=== PATIENT | male | born 1950 | race Caucasian/White ===

== ENCOUNTER → 2016-10-21 | Outpatient (CLI) | payer MEDICARE, OTHER ==
[2015-11-04 12:55] VITALS: BP 130/79
[~2016-10-21] MED LIST: ACET500T33 PO; ASPI325T4 PO; ESOM20CA PO; FLUO40CR TP; LOVA20TA2 PO; METO25TA2 PO; MULT-208 PO; OXYC5CAP3 PO; SEA-OMEGA 50 C1 EACH PO; TRAM-29 PO; VENTOLIN HFA18 GM INH
--- NOTE | 2016-10-21 10:30 | KCIC ---
CT CHEST Indication: Pulmonary nodule Comparison: None available Technique: Multiple contiguous axial images were obtained through the chest. Coronal and sagittal reformations were created. Findings: Evaluation of the mediastinum and alexandro is limited in the absence of IV contrast but no gross adenopathy is appreciated. Heart size is normal. Coronary artery calcifications are noted. There is ectasia of the aortic root measuring approximately 4.4 cm. There is no pneumothorax, pleural effusion, or infiltrate. No suspicious pulmonary nodules are identified. Limited subdiaphragmatic evaluation demonstrates low-attenuation lesions in the left and right lobes of the liver which could represent cysts but are incompletely evaluated. Surgical clips are noted in the right upper quadrant. Gallbladder is not identified. IMPRESSION: No suspicious pulmonary nodule is identified. Coronary artery disease. Ectasia of the aortic root measuring 4.4 cm. Electronically signed by: Raymond Ham MD (10/21/2016 10:26 AM)
== END | disposition home or self-care (01) ==
LOC: KCIC CT 09:37
PROVIDERS: ATTEND Internal Medicine Pulmonary Disease
DX: R91.1 Solitary pulmonary nodule (principal); I25.10 Atherosclerotic heart disease of native coronary artery without angina pectoris
CPT/HCPCS: 71250

== ENCOUNTER → 2016-11-11 | Outpatient (CLI) | payer MEDICARE ==
[2015-11-04 12:55] VITALS: BP 130/79
[~2016-11-11] MED LIST changes: -ASPI325T4 PO; +ASPI325T8 PO; +CALC625T20 PO; +CETI10TA22 PO; +FLUT9.9S NS; +OXYC5CAP PO; -OXYC5CAP3 PO; -TRAM-29 PO; +TRAM-48 PO
[2016-11-11 13:48] LABS: BASO % 1 % (0-3); EOS % 6 % (0-3); HEMATOCRIT 42.8 % (39.0-53.0); LYMPH # 1.6 x10^3/uL (1.0-4.8); LYMPH % 33 % (24-48); MEAN CORPUSCULAR HEMOGLOBIN 31 pg (25-35); MEAN CORPUSCULAR HGB CONC 35 g/dL (31-37); MEAN CORPUSCULAR VOLUME 88 fL (79-100); MONO % 9 % (0-9); NEUT % 52 % (31-73); PLATELET COUNT 191 x10^3/uL (140-400); RED BLOOD COUNT 4.85 x10^6/uL (4.30-5.70); RED CELL DISTRIBUTION WIDTH 13.5 % (11.5-14.5)
[2016-11-11 14:02] LABS: ALBUMIN 3.8 g/dL (3.4-5.0); CREATININE 1.1 mg/dL (0.7-1.3); GFR 67.2
[2016-11-11 14:04] LABS: INR 0.9 (0.8-1.1); PROTHROMBIN TIME PATIENT 11.7 SEC (11.7-14.0)
--- NOTE | 2016-11-11 14:07 | EKG ---
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
== END | disposition home or self-care (01) ==
LOC: SURGPAT 12:41
PROVIDERS: ATTEND Orthopaedic Surgery
DX: M16.11 Unilateral primary osteoarthritis, right hip (principal)
CPT/HCPCS: 36415; 80048; 82040; 83036; 85027; 85610; 85651; 85730; 87641; 93005

== ENCOUNTER 2016-11-24 08:59 | Inpatient (IN) | payer MEDICARE ==
[2016-11-23] MEDS: IV RINGERS,LACTATED 1000ML 1,000 ML IV SCH (19:39)
[~2016-11-24] VITALS: Ht 185.4 cm; Wt 101.2 kg
[2016-11-24] VITALS (7 sets, daily range): BP systolic 99–116; BP diastolic 58–64
[~2016-11-24 08:59] MED LIST changes: +ACETAMINOPHEN 500 MG TABLET PO PRN; +BACITRACIN 50,000 UNIT in IV NORMAL SALINE 1000ML BAG 1,000 ML IRR ONE; +CELECOXIB 200 MG CAPSULE. PO PRN; +HYDROmorphone 2 MG/ML VIAL IV PRN; +LIDOCAINE 1% 1 ML SYRINGE. ID PRN; +MEPERIDINE PF 25 MG/ML VIAL. IV PRN; +MIDAZOLAM HCL/PF 2 MG/2 ML VIAL. IV PRN; +MORPHINE SULFATE 4 MG/ML DISP.SYRIN. IV PRN; +PROCHLORPERAZINE 10 MG/2 ML VIAL. IV PRN; +diphenhydrAMINE 50 MG/ML VIAL IV PRN; +fentaNYL PF VIAL 100 MCG/2 ML VIAL IV PRN
[2016-11-24] MEDS ORDERED: ONDANSETRON PF 4 MG/2 ML VIAL. ONE (09:34)
[2016-11-24] MEDS ORDERED: FAMOTIDINE 20 MG/2 ML VIAL ONE (09:34)
[2016-11-24] MEDS ORDERED: DEXAMETHASONE SOD PHOS 20 MG/5 ML VIAL. ONE (09:34)
[2016-11-24] MEDS ORDERED: LIDOCAINE 2% PF Vial for OR 5 ML VIAL. ONE (09:34)
[2016-11-24] MEDS ORDERED: MIDAZOLAM HCL/PF 2 MG/2 ML VIAL. ONE (09:34)
[2016-11-24] MEDS ORDERED: PROPOFOL 20 ML IV ONE (09:34)
[2016-11-24] MEDS ORDERED: fentaNYL PF VIAL 100 MCG/2 ML VIAL ONE ×3 (09:35→13:25)
[2016-11-24] MEDS ORDERED: ROCURONIUM 50 MG/5 ML VIAL. ONE (09:35)
[2016-11-24] MEDS: IV RINGERS,LACTATED 1000ML 1,000 ML IV SCH (10:06)
[2016-11-24 10:39] LABS: PROTHROMBIN TIME PATIENT 12.5 SEC (11.7-14.0)
[2016-11-24] MEDS ORDERED: ePHEDrine PF IN SALINE 50 MG/5 ML DISP.SYRIN IV ONE (11:04)
[2016-11-24] MEDS ORDERED: SEVOFLURANE > 120 MINUTES. IH ONE (11:04)
[2016-11-24] MEDS ORDERED: GLYCOPYRROLATE 1 MG/5 ML VIAL. ONE (13:25)
[2016-11-24] MEDS ORDERED: NEOSTIGMINE METHYLSULFATE 5 MG/5 ML SYRINGE. ONE (13:25)
--- NOTE | 2016-11-24 14:01 | PDOC ---
BRIEF OPERATIVE NOTE Date: Nov 24, 2016 Pre-Op Diagnosis djd right hip Post-Op Diagnosis right total hip arthroplasty Procedure Performed right total hip arthroplasty Surgeon Elgin Tam Anesthesia Type: General Blood Loss 300cc Specimens Obtained femoral head to pathology Findings above Complications none FLAQUITO MONTOYA MD Nov 24, 2016 14:01
[2016-11-24] MEDS ORDERED: ZOLPIDEM 5 MG TABLET. PO PRN (14:15)
[2016-11-24] MEDS ORDERED: MORPHINE SULFATE 2 MG/ML DISP.SYRIN. IV PRN (14:15)
[2016-11-24] MEDS ORDERED: DEXTROSE 50% 25 GM / 50ML DISP.SYRIN. IV PRN (14:15)
[2016-11-24] MEDS ORDERED: MORPHINE SULFATE 4 MG/ML DISP.SYRIN. IV PRN (14:15)
[2016-11-24] MEDS ORDERED: fentaNYL PF VIAL 100 MCG/2 ML VIAL IV PRN ×2 (14:15)
[2016-11-24] MEDS ORDERED: diphenhydrAMINE 50 MG/ML VIAL IV PRN (14:15)
[2016-11-24] MEDS ORDERED: 0.9 % SODIUM CHLORIDE 10 ML DISP.SYRIN. IV PRN (14:15)
[2016-11-24] MEDS ORDERED: ACETAMINOPHEN 325 MG TABLET. PO PRN (14:15)
[2016-11-24] MEDS ORDERED: CALCIUM CARBONATE 500 MG TAB.CHEW PO PRN (14:15)
[2016-11-24] MEDS ORDERED: HYDROcodone/APAP 10/325 1 TAB TABLET PO PRN (14:15)
[2016-11-24] MEDS ORDERED: PROCHLORPERAZINE 10 MG/2 ML VIAL. IV PRN (14:15)
[2016-11-24] MEDS ORDERED: traMADol 50 MG TABLET PO PRN (14:15)
[2016-11-24] MEDS: fentaNYL PF VIAL 100 MCG/2 ML VIAL IV PRN ×2 (14:41→15:15)
--- NOTE | 2016-11-24 14:53 | RAD ---
Indication: Postop right hip. Time of exam 1447 hours. Postop changes right hip arthroplasty are noted. The longstem femoral component is well centered in the medullary canal. Femoral acetabular alignment is normal. Acetabular screw does appear to extend beyond the iliopectineal line. No fractures are seen. Impression: Postop changes to the right hip, as described.
[2016-11-24] MEDS ORDERED: METOPROLOL SUCC 24HR ER 25 MG TAB.ER.24H. PO SCH (16:00)
[2016-11-24] MEDS ORDERED: WARFARIN 10 MG TABLET. PO ONE (16:00)
[2016-11-24] MEDS: CETIRIZINE HCL 10 MG TABLET. PO SCH (16:00)
[2016-11-24] MEDS ORDERED: MULTIVITAMIN with MINERAL TABLET. PO SCH (16:00)
[2016-11-24] MEDS: MULTIVITAMIN with MINERAL TABLET. PO SCH (16:00)
[2016-11-24] MEDS ORDERED: NON FORMULARY ITEM (Albuterol Sulfate (Ventolin Hfa Inhaler) 2 PUFF) INH SCH (17:00)
[2016-11-24] MEDS: IV DEXTROSE 5 %-0.45 % NACL 1,000 ML IV SCH (19:47)
[2016-11-24] MEDS: ALBUTEROL SULFATE 2.5 MG/3 ML NEBU. NEB SCH (20:06)
[2016-11-24] MEDS: ATORVASTATIN CALCIUM 10 MG TABLET. PO SCH (21:25)
[2016-11-24] MEDS: CELECOXIB 200 MG CAPSULE. PO SCH (21:25)
[2016-11-25 03:41] VITALS: BP 99/59
[2016-11-25 04:59] LABS: HEMATOCRIT 34.4 % (39.0-53.0); HEMOGLOBIN 11.7 g/dL (13.0-17.5); RED BLOOD COUNT 3.83 x10^6/uL (4.30-5.70); RED CELL DISTRIBUTION WIDTH 13.7 % (11.5-14.5)
[2016-11-25 05:08] LABS: INR 1.2 (0.8-1.1); PROTHROMBIN TIME PATIENT 14.6 SEC (11.7-14.0)
[2016-11-25] MEDS ORDERED: MAGNESIUM HYDROXIDE 2,400 MG/30 ML ORAL.SUSP. PO PRN (06:00)
[2016-11-25 07:08] VITALS: BP 102/60
[2016-11-25] MEDS: ALBUTEROL SULFATE 2.5 MG/3 ML NEBU. NEB SCH ×4 (07:11→20:24)
[2016-11-25] MEDS: SENNOSIDES/DOCUSATE 8.6/50MG TABLET. PO SCH (08:30)
[2016-11-25] MEDS: MULTIVITAMIN with MINERAL TABLET. PO SCH (08:30)
[2016-11-25] MEDS: PANTOPRAZOLE 40 MG TABLET.DR. PO SCH (08:30)
[2016-11-25] MEDS: ASPIRIN 325 MG TABLET PO SCH (08:31)
[2016-11-25] MEDS: FERROUS SULFATE 325 MG TABLET. PO SCH ×2 (08:31→16:17)
[2016-11-25] MEDS: CELECOXIB 200 MG CAPSULE. PO SCH ×2 (08:31→21:18)
[2016-11-25] MEDS: FLUTICASONE 50MCG/NASAL SPRAY 16GM BOTTLE. NS SCH (08:32)
[2016-11-25] MEDS: CETIRIZINE HCL 10 MG TABLET. PO SCH (08:33)
[2016-11-25] MEDS: traMADol 50 MG TABLET PO PRN ×3 (08:49→16:18)
[2016-11-25] MEDS: IV DEXTROSE 5 %-0.45 % NACL 1,000 ML IV SCH (10:01)
--- NOTE | 2016-11-25 13:27 | PDOC ---
PROGRESS NOTES Subjective Subjective Problems overnight: Overall doing terrific with therapy and mobilization minimal pain using tramadol primarily Objective Vital Signs Vital Signs Date Time Temp Pulse Resp B/P (MAP) Pulse Ox O2 Delivery O2 Flow Rate FiO2 11/25/16 12:10 16 Room Air 11/25/16 10:00 94 11/25/16 08:49 2.0 11/25/16 07:08 97.0 71 102/60 (74) 97.0 Physical Exam Leg lengths equal distal neurovascular status intact incision drain and pain catheter intact excellent motion and stability Labs Laboratory Tests Test 11/24/16 09:50 11/25/16 04:05 Prothrombin Time 12.5 SEC (11.7-14.0) 14.6 SEC (11.7-14.0) Prothromb Time International Ratio 1.0 (0.8-1.1) 1.2 (0.8-1.1) Activated Partial Thromboplast Time 27 SEC (24-38) White Blood Count 10.0 x10^3/uL (4.0-11.0) Red Blood Count 3.83 x10^6/uL (4.30-5.70) Hemoglobin 11.7 g/dL (13.0-17.5) Hematocrit 34.4 % (39.0-53.0) Mean Corpuscular Volume 90 fL (79-100) Mean Corpuscular Hemoglobin 31 pg (25-35) Mean Corpuscular Hemoglobin Concent 34 g/dL (31-37) Red Cell Distribution Width 13.7 % (11.5-14.5) Platelet Count 160 x10^3/uL (140-400) Laboratory Tests Test 11/25/16 04:05 White Blood Count 10.0 x10^3/uL (4.0-11.0) Red Blood Count 3.83 x10^6/uL (4.30-5.70) Hemoglobin 11.7 g/dL (13.0-17.5) Hematocrit 34.4 % (39.0-53.0) Mean Corpuscular Volume 90 fL (79-100) Mean Corpuscular Hemoglobin 31 pg (25-35) Mean Corpuscular Hemoglobin Concent 34 g/dL (31-37) Red Cell Distribution Width 13.7 % (11.5-14.5) Platelet Count 160 x10^3/uL (140-400) Prothrombin Time 14.6 SEC (11.7-14.0) Prothromb Time International Ratio 1.2 (0.8-1.1) Imaging Leg lengths equal excellent positioning of components offset reproduced Assessment Assessment POD# [1], S/P [right total hip arthroplasty] Problems: Plan Plan of Care Continue mobilize with physical therapy Coumadin anticoagulation per pharmacy (note previous increased dose of Coumadin needed for therapeutic treatment) Home when sufficient progress with physical therapy possibly tomorrow Most likely outpatient physical therapy on discharge FLAQUITO MONTOYA MD Nov 25, 2016 13:27
[2016-11-25] MEDS ORDERED: WARFARIN 6 MG TABLET. PO ONE (16:00)
[2016-11-25] MEDS ORDERED: BISACODYL 10 MG SUPP.RECT. PR PRN (16:00)
[2016-11-25 18:03] VITALS: BP 126/61
[2016-11-25] MEDS ORDERED: METOPROLOL SUCC 24HR ER 25 MG TAB.ER.24H. PO SCH (21:00)
[2016-11-25] MEDS: ATORVASTATIN CALCIUM 10 MG TABLET. PO SCH (21:20)
[2016-11-25] MEDS: HYDROcodone/APAP 7.5/325MG 1 TAB TABLET PO PRN (21:20)
[2016-11-26] MEDS: HYDROcodone/APAP 7.5/325MG 1 TAB TABLET PO PRN (04:17)
[2016-11-26 06:37] VITALS: BP 106/68
[2016-11-26] MEDS: ALBUTEROL SULFATE 2.5 MG/3 ML NEBU. NEB SCH (07:15)
[2016-11-26] MEDS: PANTOPRAZOLE 40 MG TABLET.DR. PO SCH (07:50)
[2016-11-26] MEDS: FERROUS SULFATE 325 MG TABLET. PO SCH (07:52)
[2016-11-26] MEDS: FLUTICASONE 50MCG/NASAL SPRAY 16GM BOTTLE. NS SCH (09:00)
[2016-11-26] MEDS: CELECOXIB 200 MG CAPSULE. PO SCH (09:00)
[2016-11-26] MEDS: CETIRIZINE HCL 10 MG TABLET. PO SCH (09:00)
[2016-11-26] MEDS: MULTIVITAMIN with MINERAL TABLET. PO SCH (09:00)
[2016-11-26] MEDS: ASPIRIN 325 MG TABLET PO SCH (09:00)
[2016-11-26] MEDS: SENNOSIDES/DOCUSATE 8.6/50MG TABLET. PO SCH (09:00)
[2016-11-26] MEDS: traMADol 50 MG TABLET PO PRN ×2 (09:01→12:50)
[2016-11-26 09:12] LABS: INR 1.3 (0.8-1.1); PROTHROMBIN TIME PATIENT 15.7 SEC (11.7-14.0)
[2016-11-26 09:51] LABS: HEMATOCRIT 33.7 % (39.0-53.0); HEMOGLOBIN 11.6 g/dL (13.0-17.5)
[2016-11-26] MEDS ORDERED: ALBUTEROL SULFATE 2.5 MG/3 ML NEBU. NEB PRN (11:00)
--- NOTE | 2016-11-26 14:40 | PDOC ---
ORTHO PROGRESS NOTES Subjective Patient is doing well, Pain controlled. INR still not therapeutic, 1.3. he would like to go home today. Post-op Day: 2 (Right NYLA anterior approach) Vitals Vital Signs Date Time Temp Pulse Resp B/P (MAP) Pulse Ox O2 Delivery O2 Flow Rate FiO2 11/26/16 12:50 Room Air 11/26/16 06:37 98.7 70 17 106/68 (81) 94 98.7 11/25/16 08:49 2.0 Labs Laboratory Tests Test 11/25/16 04:05 11/26/16 07:40 White Blood Count 10.0 x10^3/uL (4.0-11.0) Red Blood Count 3.83 x10^6/uL (4.30-5.70) Hemoglobin 11.7 g/dL (13.0-17.5) 11.6 g/dL (13.0-17.5) Hematocrit 34.4 % (39.0-53.0) 33.7 % (39.0-53.0) Mean Corpuscular Volume 90 fL (79-100) Mean Corpuscular Hemoglobin 31 pg (25-35) Mean Corpuscular Hemoglobin Concent 34 g/dL (31-37) 34 g/dL (31-37) Red Cell Distribution Width 13.7 % (11.5-14.5) Platelet Count 160 x10^3/uL (140-400) Prothrombin Time 14.6 SEC (11.7-14.0) 15.7 SEC (11.7-14.0) Prothromb Time International Ratio 1.2 (0.8-1.1) 1.3 (0.8-1.1) Laboratory Tests Test 11/26/16 07:40 Hemoglobin 11.6 g/dL (13.0-17.5) Hematocrit 33.7 % (39.0-53.0) Mean Corpuscular Hemoglobin Concent 34 g/dL (31-37) Prothrombin Time 15.7 SEC (11.7-14.0) Prothromb Time International Ratio 1.3 (0.8-1.1) Notes Patient is alert and oriented. breathing non-labored, no acute distress. N/V intact RLE. incision covered with dressing, intact. Problems: (1) Degenerative joint disease of right hip Assessment and Plan INR sub-therapeutic- home today with coumadin. discussed with fabiola Eisenberg to send home without lovenox bridge DC home Pain script written follow up in two weeks Problem Qualifiers (1) Degenerative joint disease of right hip: Osteoarthritis type: primary Qualified Codes: M16.11 - Unilateral primary osteoarthritis, right hip MAXI ABAD ALTERATION WORKER Nov 26, 2016 14:40
[2016-11-26] MEDS ORDERED: WARFARIN 6 MG TABLET. PO ONE (16:00)
[2016-11-26] MEDS ORDERED: WARFARIN 7.5 MG TABLET. PO ONE (16:00)
--- NOTE | 2016-11-26 17:25 | PATHOLOGY ---
PATHOLOGY REPORT * * * * * * * * FINAL DIAGNOSIS: Femoral head, right hip anterior total arthroplasty: - Degenerative arthritis. (JPM/db; 11/26/2016) REPORT ELECTRONICALLY SIGNED BY: Willy Soriano M.D. DATE/TIME: 11/26/2016 17:25 * * * * * * * * GROSS PATHOLOGY: Received in formalin labeled "Stefano Sal, right hip bone and tissue," is a femoral head measuring 5.7 x 5.7 x 5.3 cm in greatest dimensions. The articular surface is pale waggoner and granular displaying minimal evidence of focal eburnation. Sectioning the bone reveals yellow-waggoner cut surfaces. Cable Lacer tissue is submitted in cassette A1, following decalcification. (KAH; 11/25/2016) INITIAL CPT CODE(S): A; 73291, 02996 Professional services performed [place] [facility] [place] [address] Technical services performed by [facility] at [address] [place] [address], [facility] [address] [place] [address]. SPECIMEN(S) RECEIVED: A.Right hip bone and tissue CLINICAL HISTORY: Primary osteoarthritis of right hip PATIENT: STEFANO SAL /AGE: 9 1950 (Age: 66) PATIENT #: [id number] ALT CASE #: SPECIMEN COLLECTION DATE: 11/24/2016 SPECIMEN RECEIVED DATE: 11/24/2016 [facility] - [address] [place] [address] - PHONE: [phone] * * * END OF REPORT * * *
--- NOTE | 2016-12-24 10:59 | OP ---
DATE OF SURGERY: 11/24/2016 PREOPERATIVE DIAGNOSIS: Right total hip arthroplasty. POSTOPERATIVE DIAGNOSIS: Right total hip arthroplasty. SURGEON: David Eisenberg M.D. DIRECTOR OF ONLINE EDUCATION: Anel. ANESTHESIA: General. ESTIMATED BLOOD LOSS: 250 mL. COMPLICATIONS: None. OPERATIVE INDICATIONS: The patient is a 66-year-old male with severe degenerative changes on the right hip and pain very limiting to his activities of daily living, unresponsive to nonoperative management including activity modification, cane, pain medications, other symptomatic treatment. I had gone over with him the risks, benefits, postoperative course of the procedure including the possibility of leg length discrepancy, infection, premature wear or loosening, instability, nerve or blood vessel damage, medical or other anesthetic complications among others. All his questions were answered. Consent was obtained and he agrees to proceed with operative evaluation and treatment. Please also note that in terms of specimens, femoral head was sent to pathology. DESCRIPTION OF PROCEDURE: The patient was identified, procedure verified, patient placed in the supine position on the operating table. After adequate amounts of general endotracheal anesthesia were administered, he was placed on the [place] fracture table and both legs were placed in traction boots with the peroneal ____. The bony prominences were well padded and the right hip was prepped and draped in standard sterile fashion. The x-ray was used to identify the leg lengths using AP of the pelvis and pubic rami for reference. An incision was then made just distal and lateral to the anterior superior iliac spine and carried out down along the course of the tensor fascia antonina. The tensor muscle was identified and brought laterally, interval with the rectus was identified with the rectus medially and retractors were placed for protection. The anterior circumflex vessels were coagulated with the Aquamantys device. Hip capsule was split in a T-fashion. The femoral neck cut was made under fluoroscopic guidance removing an additional napkin ring of bone to allow easy removal of femoral head, which was noted to be severely degenerative and sent for pathological evaluation. Acetabulum was exposed. Labrum and the contents with fovea were excised. Successive reaming was carried out up to a size 54 and a size 56. Lesli Continuum acetabular shell was placed in proper version and inclination based on x-ray and visual alignment. A single 30-mm superior screw was placed. Excellent fit was noted with stable fixation. A neutral 36-mm liner was impacted into place and attention was then turned to preparation of the femur where external rotators were preserved, capsular release was carried out with electrocautery. The leg was maximally externally rotated for the release and with motion adequate ____ to the floor and maximum extension and abduction. Femoral canal was located with the rat tail rasp and then broaching carried out with a Lesli Avenir systems to a size 6. A trial fitting was carried out initially with a standard and then with the lateral offset to improve the offset as compared to the contralateral side. Excellent stability was noted, leg length was restored and the hips stable even at ____ abduction, external rotation. Trial components were then removed. A thorough irrigation carried out with normal saline solution and a size 6 Avenir lateral offset stem was selected and tapped into place with excellent fit was noted, although initially +0 ceramic head was selected, the stem had seated somewhat more distally then the broach, although it was probably fixed, did not reproduce the leg length as desired, and then the offset was slightly decreased as well. Trial fitting was carried out with a +7 component and a +7, 36 mm ceramic head was tapped in place to engage the Cedeno taper and was reduced and did ____ the leg length and offset very well. The stability was excellent. Again, thorough irrigation carried out with normal saline solution. The capsule was repaired with #5 Ethibond suture. Fascia was repaired with #1 Vicryl, subcutaneous closure with buried Vicryl suture, skin closure with subcuticular Monocryl with Steri-Strips and Mastisol sterile dressings were applied. The patient was returned to recovery room in stable condition having tolerated the procedure well. Please note that Rocío Tam, quality control assistant was present for the procedure and assisted in the prep and draping, help with the retraction and exposure as well as a skin closure of the hand. DAVID EISENBERG MD DR: CAMILA/cirilo JOB#: [id number] / [id number] SHANDA Pacheco MD
== END 2016-11-26 15:43 | disposition home or self-care (01) | DRG 470 ==
LOC: OPSVCIP 08:59 → 4 SOUTHWST 15:20
PROVIDERS: ADMIT Orthopaedic Surgery; ATTEND Orthopaedic Surgery
PROC: 0SR90JZ Replacement of Right Hip Joint with Synthetic Substitute, Open Approach (ICD-10-PCS; principal; 2016-11-24 10:20)
DX: M16.11 Unilateral primary osteoarthritis, right hip (principal); Z88.5 Allergy status to narcotic agent
CPT/HCPCS: 36415; 72170; 76000; 85014; 85018; 85027; 85610; 85730; 86850; 86900; 86901; 88304; 88311; 94250; 94640; 94760; C1887; G0238; J0171; J0690; J0780; J1100; J1885; J2001; J2250; J2405; J2704; J2710; J2795; J3010; J3490; J7030; J7120; J7613; S0028; 97116; 97150; 97535

== ENCOUNTER 2017-06-18 13:58 | Emergency (ER) | payer MEDICARE ==
[2017-06-18 14:52] LABS: ADD MAN DIFF? NO
[2017-06-18 14:57] LABS: BASO % 1 % (0-3); EOS # 0.3 x10^3/uL (0.0-0.7); EOS % 5 % (0-3); HEMATOCRIT 43.3 % (39.0-53.0); HEMOGLOBIN 14.5 g/dL (13.0-17.5); LYMPH # 1.7 x10^3/uL (1.0-4.8); LYMPH % 28 % (24-48); MEAN CORPUSCULAR HEMOGLOBIN 30 pg (25-35); MEAN CORPUSCULAR HGB CONC 34 g/dL (31-37); MEAN CORPUSCULAR VOLUME 90 fL (79-100); MONO # 0.6 x10^3/uL (0.0-1.1); MONO % 10 % (0-9); NEUT # 3.4 x10^3uL (1.8-7.7); NEUT % 57 % (31-73); PLATELET COUNT 220 x10^3/uL (140-400); RED BLOOD COUNT 4.82 x10^6/uL (4.30-5.70); RED CELL DISTRIBUTION WIDTH 13.8 % (11.5-14.5)
[2017-06-18] MEDS: IV NORMAL SALINE 1000ML BAG 1,000 ML IV (14:57)
[2017-06-18 15:07] LABS: PARTIAL THROMBOPLASTIN TIME 25 SEC (24-38); PROTHROMBIN TIME PATIENT 12.4 SEC (11.7-14.0)
[2017-06-18 15:26] LABS: ANION GAP 10 (6-14); BLOOD UREA NITROGEN 21 mg/dL (8-26); BUN/CREATININE RATIO 19 (6-20); CALCIUM 8.9 mg/dL (8.5-10.1); CARBON DIOXIDE 28 mmol/L (21-32); CHLORIDE 107 mmol/L (98-107); CREATININE 1.1 mg/dL (0.7-1.3); GLUCOSE 89 mg/dL (70-99); POTASSIUM 4.2 mmol/L (3.5-5.1); SODIUM 145 mmol/L (136-145)
[2017-06-18 15:33] LABS: ALBUMIN 3.8 g/dL (3.4-5.0); ALK PHOS 81 U/L (46-116); ALT (SGPT) 35 U/L (16-63); AST (SGOT) 24 U/L (15-37); TOTAL BILIRUBIN 0.8 mg/dL (0.2-1.0); TOTAL PROTEIN 7.5 g/dL (6.4-8.2)
== END 2017-06-18 16:49 | disposition home or self-care (01) ==
LOC: ER 13:58
DX: S06.0X1A Concussion with loss of consciousness of 30 minutes or less, initial encounter (principal); H35.00 Unspecified background retinopathy; I10 Essential (primary) hypertension; Z85.528 Personal history of other malignant neoplasm of kidney; K21.9 Gastro-esophageal reflux disease without esophagitis; Z88.5 Allergy status to narcotic agent; Z96.641 Presence of right artificial hip joint; Z98.1 Arthrodesis status; W18.39XA Other fall on same level, initial encounter; Y93.89 Activity, other specified; Y99.8 Other external cause status; Y92.89 Other specified places as the place of occurrence of the external cause
CPT/HCPCS: 36415; 70450; 72125; 80053; 83735; 85025; 85610; 85730; 93005; 96360; 99285-25; J7030

== ENCOUNTER → 2017-10-05 | Outpatient (CLI) | payer MEDICARE | END | disposition home or self-care (01) | LOC: KCIC US 15:25 | DX: M79.89 Other specified soft tissue disorders (principal); I82.411 Acute embolism and thrombosis of right femoral vein | CPT/HCPCS: 93971 ==

== ENCOUNTER → 2017-10-27 | Outpatient (CLI) | payer MEDICARE | END | disposition home or self-care (01) | LOC: KCIC 14:10 | DX: M25.551 Pain in right hip (principal); Z96.641 Presence of right artificial hip joint | CPT/HCPCS: 73502 ==

== ENCOUNTER 2018-04-12 15:33 | Emergency (ER) | payer MEDICARE ==
[~2018-04-12] VITALS: Ht 185.4 cm; Wt 95.3 kg
[~2018-04-12 15:33] MED LIST changes: -ACETAMINOPHEN 500 MG TABLET PO PRN; -BACITRACIN 50,000 UNIT in IV NORMAL SALINE 1000ML BAG 1,000 ML IRR ONE; -CELECOXIB 200 MG CAPSULE. PO PRN; -HYDROmorphone 2 MG/ML VIAL IV PRN; -LIDOCAINE 1% 1 ML SYRINGE. ID PRN; -MEPERIDINE PF 25 MG/ML VIAL. IV PRN; -MIDAZOLAM HCL/PF 2 MG/2 ML VIAL. IV PRN; -MORPHINE SULFATE 4 MG/ML DISP.SYRIN. IV PRN; -PROCHLORPERAZINE 10 MG/2 ML VIAL. IV PRN; -diphenhydrAMINE 50 MG/ML VIAL IV PRN; -fentaNYL PF VIAL 100 MCG/2 ML VIAL IV PRN
[2018-04-12] MEDS ORDERED: dilTIAZem IV PUSH 25 MG/5 ML VIAL IVP ONE (15:45)
[2018-04-12] MEDS ORDERED: dilTIAZem INJ 125 MG in IV DEXTROSE 5% 100ML 100 ML IV ONE (15:45)
--- NOTE | 2018-04-12 15:49 | EKG ---
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
[2018-04-12 15:55] LABS: BASO % 1 % (0-3); EOS # 0.2 x10^3/uL (0.0-0.7); EOS % 3 % (0-3); HEMATOCRIT 45.2 % (39.0-53.0); HEMOGLOBIN 15.5 g/dL (13.0-17.5); LYMPH # 1.8 x10^3/uL (1.0-4.8); LYMPH % 26 % (24-48); MEAN CORPUSCULAR HEMOGLOBIN 31 pg (25-35); MEAN CORPUSCULAR HGB CONC 34 g/dL (31-37); MEAN CORPUSCULAR VOLUME 90 fL (79-100); MONO # 0.6 x10^3/uL (0.0-1.1); MONO % 9 % (0-9); NEUT # 4.2 x10^3uL (1.8-7.7); NEUT % 62 % (31-73); PLATELET COUNT 191 x10^3/uL (140-400); RED CELL DISTRIBUTION WIDTH 13.3 % (11.5-14.5); WHITE BLOOD COUNT 6.8 x10^3/uL (4.0-11.0)
[2018-04-12 16:04] LABS: PROTHROMBIN TIME PATIENT 12.6 SEC (11.7-14.0)
[2018-04-12 16:08] LABS: CALCIUM 9.3 mg/dL (8.5-10.1); CREATININE 1.3 mg/dL (0.7-1.3); GFR 55.1; POTASSIUM 4.4 mmol/L (3.5-5.1)
[2018-04-12 16:16] LABS: ALBUMIN 3.8 g/dL (3.4-5.0); TOTAL BILIRUBIN 0.9 mg/dL (0.2-1.0); TOTAL PROTEIN 7.7 g/dL (6.4-8.2)
--- NOTE | 2018-04-12 16:21 | RAD ---
CHEST AP ONLY History: CHEST PAIN Comparison: 07/19/2008 Findings: AP view of the chest is submitted. Heart size is within normal limits. There is no lobar infiltrate, pleural fluid, pneumothorax. There is cervical fusion hardware. There is widening left acromioclavicular joint. Impression: 1. No acute radiographic abnormality is identified. Electronically signed by: George Martinez MD (04/12/2018 4:18 PM) [facility]-[email or web address]
--- NOTE | 2018-04-12 16:41 | RAD ---
Right lower extremity venous doppler ultrasound History: Right leg pain, history of DVT Comparison: October 05, 2017 Findings: Multiple grayscale, color, and duplex spectral analysis sonographic images were acquired of the right lower extremity veins to evaluate for the presence of DVT. There is normal phasicity. Normal compression, color-flow, and augmentation is demonstrated from the right common femoral to the popliteal veins. There is normal color flow of the proximal greater saphenous and profunda femoris veins. There is normal color flow of segments of the calf veins. Impression: 1. There is no evidence of deep venous thrombosis from the right common femoral to popliteal veins. Electronically signed by: George Martinez MD (04/12/2018 4:37 PM) [facility]-KCIC1
[2018-04-12] MEDS ORDERED: CONTRAST GIVEN. MC PRN (17:15)
[2018-04-12] MEDS ORDERED: IOHEXOL 300 MG/ML 100ML VIAL. IV ONE (17:15)
--- NOTE | 2018-04-12 17:25 | PHYS DOC ---
Past Medical History Past Medical History: A-Fib, Arthritis, Arrhythmia, Cancer, DVT, GERD, High Cholesterol, Hypertension, Other Additional Past Medical Histor: RENAL CANCER, neuropathy, aortic aneurysm (mild ), PE, chronic back pain Past Surgical History: Cholecystectomy, Hip Replacement, Other Additional Past Surgical Histo: HERNIA, CANCER SX, R HIP REPLACEMENT, ROTATOR CUFF, KNEE SX Alcohol Use: None Drug Use: None Adult General Chief Complaint Chief Complaint: RAPID HEART RATE HPI HPI Patient is a 68 year old with history of renal cancer, intermittent A. fib, pulmonary embolus, currently not anticoagulated presents with acute onset palpitations starting to not hours prior to ED arrival. Patient reports palpitations as fast and pounding. Associated with lightheadedness and dizziness. No chest pain, shortness of breath. No nausea vomiting or sweats. Patient also does report right calf pain and cramping. No fever chills or sweats. No other acute symptoms or complaints. Triage EKG shows A. fib/flutter with heart rate 130s. Patient brought back to treatment room. [] Review of Systems Review of Systems All other systems were reviewed and found to be within normal limits, except as documented in this note. Current Medications Current Medications Current Medications Medications (Trade) Dose Ordered Sig/Peg Start Time Stop Time Status Last Admin Dose Admin Diltiazem HCl (Cardizem Iv Push) 20 mg 1X ONCE 04/12/18 15:45 04/12/18 16:19 DC Diltiazem HCl 125 mg/Dextrose 125 ml @ 5 mls/hr 1X ONCE 04/12/18 15:45 04/12/18 16:19 DC Info (CONTRAST GIVEN -- Rx MONITORING) 1 each PRN DAILY PRN 04/12/18 17:15 04/14/18 17:14 Iohexol (Omnipaque 300 Mg/ml) 60 ml 1X ONCE 04/12/18 17:15 04/12/18 17:16 DC 04/12/18 17:15 60 ML Allergies Allergies Allergies Coded Allergies Type Severity Reaction Last Updated Verified oxycodone Adverse Reaction Intermediate HALLUCINATIONS 11/25/16 Yes Physical Exam Physical Exam Constitutional: Well developed, well nourished, no acute distress, non-toxic appearance. [] HENT: Normocephalic, atraumatic, bilateral external ears normal, oropharynx moist, no oral exudates, nose normal. [] Eyes: PERRLA, EOMI, conjunctiva normal, no discharge. [] Neck: Normal range of motion, no tenderness, supple, no stridor. [] Cardiovascular:Heart rate regular rhythm, no murmur, negative Homans sign. [] Lungs & Thorax: Bilateral breath sounds clear to auscultation [] Abdomen: Bowel sounds normal, soft, no tenderness. [] Skin: Warm, dry, no erythema, no rash. [] Back: No tenderness, no CVA tenderness. [] Extremities: No tenderness, no cyanosis, no clubbing, ROM intact, no edema. [] Neurologic: Alert and oriented X 3, normal motor function, normal sensory function, no focal deficits noted. [] Psychologic: Affect normal, judgement normal, mood normal. [] Current Patient Data Vital Signs Vital Signs Date Time Temp Pulse Resp B/P (MAP) Pulse Ox O2 Delivery O2 Flow Rate FiO2 04/12/18 17:30 69 104/74 (84) 04/12/18 17:00 97 Room Air 04/12/18 16:00 16 04/12/18 15:34 97.8 97.8 Lab Values Laboratory Tests Test 04/12/18 15:45 White Blood Count 6.8 x10^3/uL (4.0-11.0) Red Blood Count 5.00 x10^6/uL (4.30-5.70) Hemoglobin 15.5 g/dL (13.0-17.5) Hematocrit 45.2 % (39.0-53.0) Mean Corpuscular Volume 90 fL (79-100) Mean Corpuscular Hemoglobin 31 pg (25-35) Mean Corpuscular Hemoglobin Concent 34 g/dL (31-37) Red Cell Distribution Width 13.3 % (11.5-14.5) Platelet Count 191 x10^3/uL (140-400) Neutrophils (%) (Auto) 62 % (31-73) Lymphocytes (%) (Auto) 26 % (24-48) Monocytes (%) (Auto) 9 % (0-9) Eosinophils (%) (Auto) 3 % (0-3) Basophils (%) (Auto) 1 % (0-3) Neutrophils # (Auto) 4.2 x10^3uL (1.8-7.7) Lymphocytes # (Auto) 1.8 x10^3/uL (1.0-4.8) Monocytes # (Auto) 0.6 x10^3/uL (0.0-1.1) Eosinophils # (Auto) 0.2 x10^3/uL (0.0-0.7) Basophils # (Auto) 0.0 x10^3/uL (0.0-0.2) Prothrombin Time 12.6 SEC (11.7-14.0) Prothrombin Time INR 1.0 (0.8-1.1) D-Dimer (Cammy) 0.67 ug/mlFEU (0.00-0.50) H Sodium Level 141 mmol/L (136-145) Potassium Level 4.4 mmol/L (3.5-5.1) Chloride Level 103 mmol/L (98-107) Carbon Dioxide Level 30 mmol/L (21-32) Anion Gap 8 (6-14) Blood Urea Nitrogen 20 mg/dL (8-26) Creatinine 1.3 mg/dL (0.7-1.3) Estimated GFR (Cockcroft-Gault) 55.1 BUN/Creatinine Ratio 15 (6-20) Glucose Level 87 mg/dL (70-99) Calcium Level 9.3 mg/dL (8.5-10.1) Total Bilirubin 0.9 mg/dL (0.2-1.0) Aspartate Amino Transferase (AST) 32 U/L (15-37) Alanine Aminotransferase (ALT) 38 U/L (16-63) Alkaline Phosphatase 75 U/L (46-116) Troponin I Quantitative < 0.017 ng/mL (0.000-0.055) IE-Pcp-H-Type Natriuretic Peptide 45 pg/mL (0-124) Total Protein 7.7 g/dL (6.4-8.2) Albumin 3.8 g/dL (3.4-5.0) Albumin/Globulin Ratio 1.0 (1.0-1.7) Laboratory Tests 04/12/18 15:45 Laboratory Tests 04/12/18 15:45 EKG EKG [KG, A. fib/A flutter with RVR.] Radiology/Procedures Radiology/Procedures [Chest x-ray: No acute cardiopulmonary disease on preliminary ED review. Venous Doppler ultrasound right lower extremity, no evidence of acute DVT per radiology report CTA chest: Pending] Course & Med Decision Making Course & Med Decision Making Pertinent Labs and Imaging studies reviewed. (See chart for details) [Upon being brought back to the treatment room and starting an IV, the patient spontaneously converted from A. fib with RVR to normal sinus rhythm and remains in a sinus rhythm throughout the ED stay. Secondary symptoms of dizziness and lightheadedness also resolved. Patient states he feels great. Basic lab, EKG, venous Doppler ultrasound and chest x-ray obtained. No acute findings. With exception of an elevated d-dimer. CT angios chest pending. Anticipate discharge home if CTA chest is negative for presence of a pulmonary embolus. Patient will be referred to flatbed stitcher as an outpatient for reevaluation as to whether he would benefit from future anticoagulation therapy. Return precautions will be reviewed with the patient's prior to his departure. ] Dragon Disclaimer Dragon Disclaimer This electronic medical record was generated, in whole or in part, using a voice recognition dictation system. Departure Departure Impression: Primary Impression: Paroxysmal atrial fibrillation Additional Impression: Palpitations Disposition: 01 HOME, SELF-CARE Condition: GOOD Referrals: SHANDA GEIGER MD (PCP) PAT ESTRELLA MD Patient Instructions: Atrial Fibrillation, [id number], Palpitations, Easy-to- Read Additional Instructions: You were evaluated in the emergency department for atrial fibrillation with palpitations and right leg pain. EKGA. fib and flutter which has since resolved. Chest x-ray, CT chest and venous Doppler ultrasound of your leg were performed and do not show evidence deep venous blood clot or pulmonary embolus. Please continue current medications and follow-up with PCP and on-call flatbed stitcher. The meantime if you develop new or worsening symptoms, return to the ED.. Problem Qualifiers GRIFFIN BRADEN DO Apr 12, 2018 17:25
[2018-04-12 17:30] VITALS: BP 104/74
--- NOTE | 2018-04-12 17:53 | RAD ---
CT ANGIOGRAPHY CHEST dated 04/12/2018 5:20 PM Indication: Shortness breath, atrial fibrillationSOA. AFIB
PREVIOUS 2010. Comparison: 10/21/2016 Technique: Contiguous axial imaging of the chest performed following the intravenous administration of 60 cc Omnipaque 300. Study was performed as dedicated PE protocol with thin cut coronal MIPS 3-D reconstruction. One or more of the following individualized dose reduction techniques were utilized for this examination: 1. Automated exposure control 2. Adjustment of the mA and/or kV according to patient size 3. Use of iterative reconstruction technique Findings: Contrast bolus is adequate. No evidence of central, lobar or segmental pulmonary embolus. The subsegmental branches are not well evaluated based on technique. Heart size within normal limits. No pericardial effusion. Scattered coronary calcifications. Mild aneurysmal dilation of the ascending thoracic aorta and aortic root measuring up to 5.1 cm maximum transverse dimension, unchanged from prior study. No intimal flap. Descending thoracic aorta normal in caliber. Borderline enlarged subcarinal lymph node measures 10 mm short axis, unchanged. No axillary or hilar adenopathy. Thyroid gland unremarkable. Central airways are patent. Mild diffuse bronchial wall thickening. Mild emphysema. Patchy groundglass opacity in the lower lobes, likely dependent atelectasis. 3 mm noncalcified pulmonary nodule in the anterior left upper lobe on image 50, new from prior study. There is also a 3 mm noncalcified pulmonary nodule in the right upper lobe posterior laterally on image 44 that is new from prior exam. No consolidation or pleural effusion. Limited images of the upper abdomen show well-circumscribed low-density focus in the left lobe liver on image 275 changed. There is also a well-circumscribed nodule in the right lobe near the hepatic dome that is stable. No new liver lesion. The gallbladder is surgically absent. The right kidney is surgically absent. There is an intermediate density nodule in the posterior upper pole left kidney that measures 2 cm in size with Hounsfield value 33, unchanged from prior study. There is also a low-density lesion of the upper pole anteriorly that measures Hounsfield value, stable. Bone windows show no acute findings. Multilevel spondylosis. IMPRESSION: 1. No evidence of central, lobar or segmental pulmonary embolus. 2. There are couple of tiny noncalcified pulmonary nodules in the bilateral upper lobes were not definitely present on the prior exam. These are nonspecific. Suggest follow-up imaging in one year to ensure stability. 3. Aneurysmal dilation of the ascending thoracic aorta and aortic root measuring up to 5.1 cm maximum transverse dimension. This is stable from prior study. No evidence of dissection. Continued follow-up imaging is recommended to ensure stability. 4. Indeterminate low-density nodule of the upper pole left kidney, stable from prior study. There is evidence of prior right nephrectomy. 5. Patchy bibasilar airspace disease, likely scar or atelectasis. Electronically signed by: Segun Bhatt MD (04/12/2018 5:50 PM) [facility]
== END 2018-04-12 18:13 | disposition home or self-care (01) ==
LOC: ER 15:33
DX: I48.0 Paroxysmal atrial fibrillation (principal); R42 Dizziness and giddiness; M79.661 Pain in right lower leg; K21.9 Gastro-esophageal reflux disease without esophagitis; E78.00 Pure hypercholesterolemia, unspecified; I10 Essential (primary) hypertension; G89.29 Other chronic pain; Z86.711 Personal history of pulmonary embolism; Z86.718 Personal history of other venous thrombosis and embolism; Z88.5 Allergy status to narcotic agent
CPT/HCPCS: 36415; 71045; 71275; 80053; 83880; 84484; 85025; 85379; 85610; 93005; 93971; 99285; Q9967

== ENCOUNTER → 2018-08-16 | Outpatient (CLI) | payer MEDICARE ==
[~2018-08-16] MED LIST changes: +IOHEXOL 300 MG/ML 100ML VIAL. IV ONE
--- NOTE | 2018-08-16 15:37 | KCIC ---
PQRS Compliance statement: One or more of the following individualized dose reduction techniques were utilized for this examination: 1. Automated exposure control. 2. Adjustment of the mA and/or kV according to patient size. 3. Use of iterative reconstruction technique. Indication:Dilated aortic root. Follow-up. TECHNIQUE: CT angiogram of the chest without and with IV contrast with multiplanar MIP reformats. COMPARISON: 04/12/2018 FINDINGS: Suboptimal angiography study as the study is performed as a PE protocol. Stable dilation of the aortic root measuring 4.8 cm (series 10,000 image 51). The ascending aorta measures 4.7 cm, previously 4.5 cm. The descending aorta measures 2.9 cm. Heart is normal in size. No pericardial or pleural effusion. Coronary artery calcifications. Clear neck base. No enlarged axillary, mediastinal or hilar adenopathy. Central airways are patent. 4 limited nodule in the right middle lobe (series 7 image 95, stable. Otherwise, lungs are clear. Stable multiple low attenuating lesions are seen in the liver, the largest in segment 3 of the liver measuring 1.3 cm likely simple cysts or hemangiomas. Status post cholecystectomy. Spleen,, pancreas, adrenals within normal limits. Stable 5.6 cm and 2.1 cm left renal lesion, previously 5.8 cm and 2.3 cm respectively. Status post right nephrectomy. No suspicious bony lesion. IMPRESSION: 1. Suboptimal angiography study due to contrast bolus timing. Stable aortic measurements as described above. 2. Solitary right middle lobe nodule. Attention on follow-up. Electronically signed by: Kraig Bradshaw DO (08/16/2018 3:34 PM) [facility]
== END | disposition home or self-care (01) ==
LOC: KCIC CT 10:22
PROVIDERS: ATTEND Internal Medicine Cardiovascular Disease
DX: I77.810 Thoracic aortic ectasia (principal); R91.1 Solitary pulmonary nodule; I25.10 Atherosclerotic heart disease of native coronary artery without angina pectoris; N28.89 Other specified disorders of kidney and ureter; Z90.49 Acquired absence of other specified parts of digestive tract; Z90.5 Acquired absence of kidney
CPT/HCPCS: 71275; 82565; Q9967

== ENCOUNTER 2020-07-24 12:11 | Emergency (ER) | payer MEDICARE ==
[~2020-07-24] VITALS: Ht 190.5 cm; Wt 100.0 kg
[~2020-07-24 12:11] MED LIST changes: -CETI10TA22 PO; +CETI10TA74 PO; -IOHEXOL 300 MG/ML 100ML VIAL. IV ONE
[2020-07-24] MEDS ORDERED: diphenhydrAMINE 50 MG/ML VIAL IVP ONE (12:30)
[2020-07-24] MEDS ORDERED: METOCLOPRAMIDE 10 MG TABLET. PO ONE (12:30)
[2020-07-24] MEDS ORDERED: IV NORMAL SALINE 1000ML BAG 1,000 ML IV ONE (12:30)
--- NOTE | 2020-07-24 12:32 | PHYS DOC ---
Past Medical History Past Medical History: A-Fib, Arthritis, Arrhythmia, Cancer, DVT, GERD, High Cholesterol, Hypertension, Other Additional Past Medical Histor: RENAL CANCER, neuropathy, aortic aneurysm (mild), PE, chronic back pain Past Surgical History: Cholecystectomy, Hip Replacement, Other Additional Past Surgical Histo: HERNIA, CANCER SX, R HIP REPLACEMENT, ROTATOR CUFF, KNEE SX Smoking Status: Never Smoker Alcohol Use: None Drug Use: None General Adult EDM: Chief Complaint: Headache and chest pain HPI: HPI: 70-year-old male presents emergency department today with sudden severe headache started about an hour ago. He had a what he describes as a sinus headache with a throbbing aching in the frontal region of his head that started early this morning. He typically bikes about 40 miles on his stationary bike. While he was biking he had a sudden severe headache that was pounding which radiated down into his neck and chest. He denies any slurred speech or weakness or numbness of his arms or legs. He denies feeling dizzy or lightheaded. Currently he describes the pain in the anterior portion of his head which radiates down into his chest. He describes the pain is a constant throbbing pain Review of systems negative for abdominal pain vomiting diaphoresis fevers chills rash. He denies focal neurologic deficits. All other review of systems negative. ED course: 70-year-old male presenting with a severe headache while exerting himself. On arrival the patient is neurologically intact with a normal neurologic exam. IV fluids metoclopramide and diphenhydramine ordered. IV morphine ordered for pain. Patient's head CT and CT angiography performed with intentionally doing the angiography in order to evaluate for pulmonary embolism/aortic dissection. After CT angiogram was performed between 1310 and 1315 I went to review the films after guitar technician notified me that there was an abnormality. I confirmed this abnormality with the radiologist in real-time for a type a dissection. The patient's physical exam has not changed. We will initiate an esmolol drip. We do not have a cardiothoracic surgeon at our [facility] psychiatrist currently so I sought higher level of care. I initiated transfer at 1318 to the [facility] and spoke with Mayelin at the transfer center. I explained that I had a aortic dissection that needed emergent transfer. I called back at 1:34 PM after hearing no response. The patient's clinical symptoms have not changed however I am concerned that we need to transfer this patient emergently. I communicated these concerns to them at that time. They will not accept the patient until cardiothoracic surgery reviews the films. I called back again at 1:40 PM communicating my concerns needing a physician to accept the patient due to the patient's life-threatening condition. They explained that only the cardiothoracic surgeons are allowed to accept these patients. I explained that any physician can accept the patient while the cardiothoracic surgeon reviews the films. They refused excepting the patient at this time 1:40 PM saying they cannot accept until cardiothoracic surgery reviews the films. I explained my concerns for the patient's condition and the patient's life-threatening condition at our inability to treat the patient here in our hospital. They did not accept the patient at that time. They called back at 147 informing me that the cardiothoracic surgeons are now reviewing the films. I again asked if we can transfer the patient which they did not accept. They are needing their cardiothoracic surgeon to review the films in order to accept the patient. I called back at 2 PM and while I was waiting, they had called me back at 2:05 PM. They have now accepted the patient with Dr. Lemon accepting the patient however the they need to work on a bed and they state once that they have a bed available we can send the patient. Ie we cannot send pt until the establish a bed. They mentioned putting EMS on alert. [facility] typically is here in about 2 min with EMS critical transfers. We called them to alert [facility]. Because of the delay in care to being able to get the case patient over to we initiated transfer to [facility] at 1413 and they called back at 1420 and I spoke with Drs. Ashraf and Pietro the cardiothoracic surgeon. They will immediately look for an intensive care bed. Dr. Westbrook accepts the patient for transfer to [facility]. They will call back when they have a bed available. I was then called with a bed at (accepting the pt) around 1430- 1440. We immediately called EMS for transfer and the pt was transferred to a higher level of care for treatment of a Type A aortic dissection for CTS eval and care. Review of Systems: Review of Systems: Constitutional: Denies fever or chills. [] Eyes: Denies change in visual acuity. [] HENT: Denies nasal congestion or sore throat. [] GI: Denies abdominal pain, nausea, vomiting, bloody stools or diarrhea. [] : Denies dysuria. [] Musculoskeletal: Denies back pain or joint pain. [] Integument: Denies rash. [] Neurologic: Denies headache, focal weakness or sensory changes. [] Endocrine: Denies polyuria or polydipsia. [] Lymphatic: Denies swollen glands. [] Psychiatric: Denies depression or anxiety. [] all other ros is neg. Heart Score: Risk Factors: Risk Factors: DM, Current or recent (<one month) smoker, HTN, HLP, family history of CAD, obesity. Risk Scores: Score 0 - 3: 2.5% MACE over next 6 weeks - Discharge Home Score 4 - 6: 20.3% MACE over next 6 weeks - Admit for Clinical Observation Score 7 - 10: 72.7% MACE over next 6 weeks - Early Invasive Strategies Current Medications: Current Medications Medications (Trade) Dose Ordered Sig/Peg Start Time Stop Time Status Last Admin Dose Admin Diphenhydramine HCl (Benadryl) 25 mg 1X ONCE 07/24/20 12:30 07/24/20 12:31 Metoclopramide HCl (Reglan) 10 mg 1X ONCE 07/24/20 12:30 07/24/20 12:31 Sodium Chloride 1,000 ml @ 1,000 mls/hr Q1H ONCE 07/24/20 12:30 07/24/20 13:29 Allergies: Allergies: Allergies Coded Allergies Type Severity Reaction Last Updated Verified oxycodone Adverse Reaction Intermediate HALLUCINATIONS 11/25/16 Yes Physical Exam: PE: Constitutional: Well developed, well nourished, appears to be in a moderate amount of pain, non-toxic appearance. [] HENT: Normocephalic, atraumatic, bilateral external ears normal, oropharynx moist, no oral exudates, nose normal. [] Eyes: PERRLA, EOMI, conjunctiva normal, no discharge. [] Neck: Normal range of motion, no tenderness, supple, no stridor. [] Cardiovascular:Heart rate regular rhythm, no murmur [] Lungs & Thorax: Bilateral breath sounds clear to auscultation [] Abdomen: Bowel sounds normal, soft, no tenderness, no masses, no pulsatile masses. [] Skin: Warm, dry, no erythema, no rash. [] Back: No tenderness, no CVA tenderness. [] Extremities: No tenderness, no cyanosis, no clubbing, ROM intact, no edema. [] Neurologic: Mental status: Awake oriented and alert x3 Cranial nerves: Extraocular movements intact, eyebrows [place] bilaterally, smile symmetric, uvula elevation nl, shoulder shrug intact bilaterally, tongue protrusion normal Clear speech. Normal [id number]. Sensation: equal and normal in all extremities Strength: 5/5 in upper and lower extremities bilaterally Psychologic: Affect normal, judgement normal, mood normal. [] EKG: EKG: [] Radiology/Procedures: Radiology/Procedures: [] Course & Med Decision Making: Course & Med Decision Making Pertinent Labs and Imaging studies reviewed. (See chart for details) [] Dragon Disclaimer: Dragon Disclaimer: This electronic medical record was generated, in whole or in part, using a voice recognition dictation system. Departure Departure Impression: Primary Impression: Chest pain Additional Impressions: Aortic dissection Primary thunderclap headache Disposition: 02 DC/TRF OTHER SHORT TERM HOS Condition: CRITICAL Referrals: SHANDA GEIGER MD (PCP) Critical Care Time Critical care time was 50 minutes exclusive of procedures. GABRIELLE JASSO MD Jul 24, 2020 12:32
[2020-07-24 12:36] LABS: BASO # 0.1 x10^3/uL (0.0-0.2); BASO % 1 % (0-3); EOS # 0.2 x10^3/uL (0.0-0.7); EOS % 4 % (0-3); HEMATOCRIT 44.4 % (39.0-53.0); HEMOGLOBIN 15.1 g/dL (13.0-17.5); LYMPH # 1.9 x10^3/uL (1.0-4.8); LYMPH % 30 % (24-48); MEAN CORPUSCULAR HEMOGLOBIN 30 pg (25-35); MEAN CORPUSCULAR HGB CONC 34 g/dL (31-37); MEAN CORPUSCULAR VOLUME 89 fL (79-100); MONO # 0.6 x10^3/uL (0.0-1.1); MONO % 10 % (0-9); NEUT # 3.6 x10^3/uL (1.8-7.7); NEUT % 56 % (31-73); PLATELET COUNT 163 x10^3/uL (140-400); RED BLOOD COUNT 5.02 x10^6/uL (4.30-5.70); RED CELL DISTRIBUTION WIDTH 13.8 % (11.5-14.5); WHITE BLOOD COUNT 6.4 x10^3/uL (4.0-11.0)
[2020-07-24] MEDS ORDERED: METOCLOPRAMIDE HCL 10 MG/2 ML VIAL. ONE (12:39)
[2020-07-24] MEDS ORDERED: METOCLOPRAMIDE HCL 10 MG/2 ML VIAL. IVP ONE (12:45)
[2020-07-24 12:49] LABS: CALCIUM 9.1 mg/dL (8.5-10.1); CREATININE 1.5 mg/dL (0.7-1.3); GFR 46.4
[2020-07-24 12:55] LABS: ALBUMIN 3.5 g/dL (3.4-5.0); ALBUMIN/GLOBULIN RATIO 0.9 (1.0-1.7); MAGNESIUM 1.9 mg/dL (1.8-2.4); TOTAL PROTEIN 7.4 g/dL (6.4-8.2)
[2020-07-24] MEDS ORDERED: IOHEXOL 350 MG/ML 100 ML VIAL. IV ONE (13:00)
--- NOTE | 2020-07-24 13:00 | EKG ---
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
[2020-07-24] MEDS ORDERED: CONTRAST GIVEN. MC PRN (13:15)
[2020-07-24] MEDS: MORPHINE SULFATE 2 MG/ML VIAL. IV PRN ×2 (13:21→14:24)
[2020-07-24] MEDS ORDERED: ESMOLOL 2500MG/250ML PREMIX 250 ML IV ONE (13:30)
--- NOTE | 2020-07-24 14:36 | RAD ---
EXAM: CT Head without IV contrast INDICATION: Reason: headache other / Spl. Instructions: / History: TECHNIQUE: Multi-detector row CT images were obtained of the head without the use of IV contrast. All CT scans performed at this facility utilize dose optimization techniques as appropriate to the exam, including the following: Automated exposure control and adjustment of the mA and/or KV according to patient size (this includes techniques or standardized protocols for targeted exams where dose is ind ication/reason for exam). COMPARISON: None FINDINGS: BRAIN PARENCHYMA: No evidence of acute intraparenchymal hemorrhage or infarct. No abnormal parenchyma l density or mass. VENTRICLES & EXTRA-AXIAL SPACES: Ventricles are within normal limits. Basilar cisterns are patent. N o pathologic extra-axial fluid collection or mass. The intracranial arteries are mildly ectatic. ORBITS: Orbital contents are unremarkable. SINUSES: Visualized paranasal sinuses and mastoid air cells are clear. OSSEOUS & SOFT TISSUES: Calvarium and skull base are intact. IMPRESSION: No acute intracranial pathology. However, please see report on subsequent CT angiogram head and neck obtained same day. Discussed with Dr. Cuco Gamino in person at 1:10 PM on 07/24/2020 Electronically signed by: Toby Rao MD (07/24/2020 2:34 PM) [id number]
[2020-07-24 14:44] VITALS: BP 94/54
--- NOTE | 2020-07-24 16:08 | RAD ---
EXAM: XR CHEST 1V INDICATION: Reason: chest pain / Spl. Instructions: / History: . TECHNIQUE: Single view COMPARISON: Chest x-ray 04/12/2018 FINDINGS: ACDF surgical changes redemonstrated in the lower cervical spine. The heart size is normal. Great vessels show slight interval decrease in tortuosity of the thoracic aorta which could be positi onal. There is no hilar or mediastinal mass. The lungs are hypoventilatory but otherwise clear. There is no pleural effusion or pneumothorax. There are no significant osseous abnormalities. IMPRESSION: Hypoventilatory chest showing no definite acute cardiopulmonary process. Based on index of suspicion, further imaging by chest CT could be pursued. Electronically signed by: Toby Rao MD (07/24/2020 4:06 PM) [id number]
--- NOTE | 2020-07-24 16:58 | RAD ---
EXAM: CT Angiogram of the Head and Neck INDICATION: Reason: headache other, SUDDEN ONSET SEVERE CARBONE, HX PE, SOA / Spl. Instructions: [id number] 5ML, INCLUDE PULM ARTERY ON CTA NECK PER DR GAMINO / History: 70-year-old man with a history of aneurys m, A. fib and coronary artery disease and right nephrectomy for cancer. TECHNIQUE: CT images were obtained through the head per standard CTA protocol. Multiplanar and 3D ref ormatted images were generated from the CT dataset on an independent workstation. All CT scans perfor med at this facility utilize dose optimization techniques as appropriate to the exam, including the f ollowing: Automated exposure control and adjustment of the mA and/or KV according to patient size (th is includes techniques or standardized protocols for targeted exams where dose is indication/reason f or exam). IV CONTRAST: 85 mL Omnipaque 350 COMPARISON: Noncontrast head CT, 08/16/2018 CT pulmonary angiogram FINDINGS: CTA HEAD: No high-grade large vessel stenosis, proximal or branch vessel occlusion, aneurysm, or vascular malfo rmation. ANTERIOR CIRCULATION: Anterior and middle cerebral arteries are widely patent. ANTERIOR COMMUNICATING ARTERY: Patent. POSTERIOR COMMUNICATING ARTERIES: Present bilaterally and patent. POSTERIOR CIRCULATION: Vertebral and basilar arteries are widely patent. Bilateral posterior inferio r cerebellar arteries (PICAs), anterior inferior cerebellar arteries (AICAs), and superior cerebellar arteries (SCAs) are visualized and patent. OTHER: No abnormal brain parenchymal enhancement. However, there is decreased density of enhancement in the right anterior circulation vessels. The paranasal sinuses, mastoid air cells, and tympanic ca vities are clear. NECK CTA: AORTA: 3 vessel configuration of arch. Acute aortic dissection is present extending from the aortic root through the visualized descending t horacic aorta. Ascending thoracic aorta at the root measures 5.5 cm diameter. At the mid ascending ao rta, it measures 5.0 cm. Aortic arch measures 3.9 cm. Proximal descending thoracic aorta measures 3.3 cm. Mid descending thoracic aorta measures 2.9 cm. Distal descending thoracic aorta are not imaged o n this exam. All 3 supra aortic branch vessels are perfused by the true lumen but there is variable extension of t he dissection flap along their lengths, from no propagation of dissection flap beyond the origin of t he left common carotid artery and 7 mm extension up the left subclavian artery, to likely much furthe r extension of the right common carotid artery. There is beam hardening artifact at the thoracic inlet related to dense contrast material in the righ t subclavian and innominate veins as well as from implanted anterior cervical fusion hardware. This l imits detailed assessment of the thoracic inlet but multiplanar reformats suggest extension of the ao rtic dissection into the right innominate and right common carotid arteries, resulting in greater harsha n 70 percent luminal stenosis (illustrated for example on axial image 172 of series 9 where it measur es 3 mm compared with a 10 mm diameter approximately). RIGHT CAROTID: The right common carotid artery is proximally stenotic as described above due to prop agation of the aortic dissection flap. Calcification at the carotid bulb is noted without flow-limiti ng stenosis. The proximal portion of the right cervical internal carotid artery is tortuous and patul ous but shows no dissection or stenosis. It opacifies less robustly than the contralateral cervical i nternal carotid artery takes a partially retropharyngeal course at the C2-C3 level. LEFT CAROTID: Common and internal carotid arteries are widely patent, without evidence of flow limit ing stenosis or dissection. Calcified plaque at the aortic bulb is present. The cervical internal car otid artery is markedly tortuous and mildly patulous. VERTEBRAL ARTERIES: Codominant. The proximal right vertebral artery does not fill with contrast and m ay be occluded or fills in retrograde fashion. SUBCLAVIAN ARTERIES:Subclavian arteries are patent without stenosis. SOFT TISSUES: At the request of the referring physician, imaging was performed to include opacificat ion of the main pulmonary arteries and the visualized portion shows no evidence of emboli . Lung apic es are clear. Multilevel cervical spinal degenerative spondylosis is present. Where applicable, evaluation of ICA stenosis was performed using NASCET criteria, where the site of g reatest stenosis is compared to the diameter of the ICA distal to the carotid bulb. IMPRESSION: 1. Acute DeBakey type I aortic dissection with propagation of dissection into the right common caroti d artery, resulting in hemodynamically significant stenosis of the right common carotid artery, gener alized relative hypoperfusion of the anterior right intracranial circulation, and proximal hypoperfus ion of the right vertebral artery. Study detail degraded by beam hardening artifact as described. 2. Patient has tortuous and ectatic arteries. This is nonspecific and can be seen for example with ch ronic hypertension and connective tissue disorders. 3. Intracranial vessels show tortuosity and mild ectasia but otherwise are unremarkable, allowing for poor inflow from acute dissection as described above. 4. No pulmonary emboli. FOR INTERNAL CODING PURPOSES Critical result: Findings discussed with Dr. Cuco Gamino in person at 07/24/2020 1:10 PM. RESULT CODE: (C) Electronically signed by: Toby Rao MD (07/24/2020 4:56 PM) [id number]
== END 2020-07-24 14:47 | disposition short-term general hospital (02) ==
LOC: ER 12:11
DX: G44.53 Primary thunderclap headache (principal); Z20.822 Contact with and (suspected) exposure to COVID-19; R07.89 Other chest pain; I71.00 Dissection of unspecified site of aorta; I48.91 Unspecified atrial fibrillation; K21.9 Gastro-esophageal reflux disease without esophagitis; G89.29 Other chronic pain; E78.00 Pure hypercholesterolemia, unspecified; I10 Essential (primary) hypertension; Z86.718 Personal history of other venous thrombosis and embolism; Z88.5 Allergy status to narcotic agent
CPT/HCPCS: 36415; 70450; 70496; 70498; 71045; 80053; 83735; 84484; 85025; 87426; 93005; 96361; 96365; 96375; 96376; 99291; C9803; J1200; J2270; J2765; J3490; J7030; U0003